=== PATIENT | male | born 1980 | race American Indian/Alaskan Native ===

== ENCOUNTER 2017-06-16 10:10 | Emergency (ER) | payer SELFPAY ==
[2017-06-16] MEDS ORDERED: ASPIRIN PO ONE (10:21)
--- NOTE | 2017-06-16 10:45 | XRay Report ---
ROUTINE CHEST, TWO VIEWS: HISTORY: chest pain, shortness of breath. The trachea, heart, mediastinal contour, lung duarte and bony thorax are unremarkable. IMPRESSION: Unremarkable chest x-ray. No significant change since 12/02/14.
[2017-06-16 10:50] LABS: Basophils % (Auto) 0.7 % (0.0-1.8); Eosinophils % (Auto) 1.7 % (0.0-4.3); Hemoglobin 14.8 gm/dl (11.8-15.2); Lymphocytes # (Auto) 0.8 K/mm3 (1.2-5.4); Lymphocytes % (Auto) 29.8 % (13.4-35.0); Mean Corpuscular HGB Conc 34 % (32-34); Mean Corpuscular Hemoglobin 29 pg (28-32); Mean Corpuscular Volume 85 fl (84-94); Monocytes # (Auto) 0.2 K/mm3 (0.0-0.8); Monocytes % (Auto) 9.2 % (0.0-7.3); Platelet Count 175 K/mm3 (140-440); Red Blood Count 5.07 M/mm3 (3.65-5.03); Red Cell Distribution Width 14.5 % (13.2-15.2)
[2017-06-16 10:53] LABS: BUN/Creatinine Ratio 11; Blood Urea Nitrogen 11 mg/dL (9-20); Calcium 8.7 mg/dL (8.4-10.2); Hemolysis Index 0
[2017-06-16] MEDS ORDERED: FLEXERIL PO ONE (17:46)
--- NOTE | 2017-06-16 17:48 | Emergency Department Report ---
HPI - General Chief Complaint: Chest Pain Time Seen by Provider: 06/16/17 16:38 - HPI HPI: 37-year-old -[place] male complaining of right chest pain. No shortness of breath. Pain is worse with movement. Pain is 5 out of 10 sharp. No nausea, no vomiting, no shortness of breath, no diaphoresis. ED Past Medical Hx - Past Medical History Previous Medical History?: Yes Hx HIV: Yes Additional medical history: AIDS - Surgical History Past Surgical History?: Yes Additional Surgical History: Abcess - Social History Smoking Status: Current Every Day Smoker Substance Use Type: None - Medications Home Medications: Home Medications Medication Instructions Recorded Confirmed Last Taken Type Albuterol Sulfate [Ventolin HFA] 2 puff IH Q4H PRN #1 hfa.aer.ad 12/02/14 Unknown Rx Atazanavir Sulfate [Reyataz] 400 mg PO QDAY 12/02/14 12/02/14 Unknown History Bactrim DS TAB 800 mg PO DAILY 12/02/14 12/02/14 Unknown History Emtricitabin/Tenofovir [TRUVADA 12/02/14 12/02/14 Unknown History 200-300 mg] Emtricitabin/Tenofovir [TRUVADA 12/02/14 12/02/14 Unknown History 200-300 mg] Promethazine [Phenergan TAB] 25 mg PO Q6HR PRN #30 tab 12/02/14 Unknown Rx Ritonavir [Norvir] 100 mg PO QDAY 12/02/14 12/02/14 Unknown History Sulfamethoxazole/Trimethoprim PO DAILY 12/02/14 12/02/14 Unknown History [Bactrim DS TAB] metroNIDAZOLE [Flagyl TAB] 500 mg PO Q8HR #21 tablet 12/02/14 Unknown Rx HYDROcodone/APAP 5-325 [[place] 1 each PO Q6HR PRN #20 tablet 06/16/17 Unknown Rx 5-325 mg TAB] ED Review of Systems ROS: Stated complaint: CHEST PAIN Other details as noted in HPI Comment: All other systems reviewed and negative ENT: denies: ear pain Respiratory: no symptoms reported Cardiovascular: chest pain Physical Exam - Physical Exam Vital Signs: Vital Signs 06/16/17 06/16/17 06/16/17 10:17 15:57 16:01 Temperature 98.6 F 98 F Pulse Rate 82 65 Respiratory 18 18 Rate Blood Pressure 125/85 130/70 O2 Sat by Pulse 98 95 Oximetry Physical Exam: Gen. alert and oriented 3 in no distress Head atraumatic normocephalic Eyes PERR LA EOMI Chest regular rate and rhythm normal S1-S2 lungs clear bilaterally Abdomen soft nondistended Back no point tenderness paravertebral tenderness Neuro no focal deficit. Psych normal mood. ED Course Vital Signs 06/16/17 06/16/17 06/16/17 10:17 15:57 16:01 Temperature 98.6 F 98 F Pulse Rate 82 65 Respiratory 18 18 Rate Blood Pressure 125/85 130/70 O2 Sat by Pulse 98 95 Oximetry ED Medical Decision Making - Lab Data Result diagrams: 06/16/17 10:27 06/16/17 10:27 Critical care attestation.: If time is entered above; I have spent that time in minutes in the direct care of this critically ill patient, excluding procedure time. ED Disposition Clinical Impression: Chest pain Disposition: DC-01 TO HOME OR SELFCARE Is pt being admited?: No Does the pt Need Aspirin: No Condition: Stable Instructions: Chest Pain (ED) Prescriptions: HYDROcodone/APAP 5-325 [[place] 5-325 mg TAB] 1 each PO Q6HR PRN #20 tablet PRN Reason: Pain Referrals: PRIMARY CARE, [Primary Care Provider] - 3-5 Days
[2017-06-16 18:11] VITALS: BP 128/67
== END 2017-06-16 18:12 | disposition home or self-care (01) ==
LOC: ED 10:10
DX: R07.89 Other chest pain (principal); F17.200 Nicotine dependence, unspecified, uncomplicated
CPT/HCPCS: 36415; 71046; 80048; 84484; 85025; 93005; 93010

== ENCOUNTER 2019-02-03 09:56 | Emergency (ER) | payer SELFPAY ==
[2019-02-03 10:05] VITALS: BP 134/76
[2019-02-03] MEDS ORDERED: NACL 0.9% 1000 ML 1,000 ML IV ONE (10:36)
[2019-02-03 11:29] LABS: Basophils % (Auto) 0.4 % (0.0-1.8); Eosinophils # (Auto) 0.1 K/mm3 (0.0-0.4); Eosinophils % (Auto) 2.8 % (0.0-4.3); Hematocrit 43.9 % (35.5-45.6); Hemoglobin 15.1 gm/dl (11.8-15.2); Lymphocytes # (Auto) 0.7 K/mm3 (1.2-5.4); Lymphocytes % (Auto) 24.3 % (13.4-35.0); Mean Corpuscular HGB Conc 34 % (32-34); Mean Corpuscular Volume 88 fl (84-94); Monocytes # (Auto) 0.3 K/mm3 (0.0-0.8); Monocytes % (Auto) 11.7 % (0.0-7.3); Platelet Count 193 K/mm3 (140-440); Red Cell Distribution Width 13.4 % (13.2-15.2)
[2019-02-03 11:34] LABS: Alanine Aminotransferase 16 units/L (7-56); Albumin 3.8 g/dL (3.9-5); BUN/Creatinine Ratio 7; Blood Urea Nitrogen 7 mg/dL (9-20); Calcium 8.9 mg/dL (8.4-10.2); Hemolysis Index 0
--- NOTE | 2019-02-03 11:39 | XRay Report ---
ABDOMEN 2 VIEWS INDICATION / CLINICAL INFORMATION: Abdominal pain. Diarrhea COMPARISON: None available. FINDINGS: TUBES / LINES: None. BOWEL GAS PATTERN: No significant abnormality. FREE AIR / EXTRALUMINAL GAS: None seen. ADDITIONAL FINDINGS: No significant additional findings. LUNGS: Lung bases appear clear. IMPRESSION: 1. No significant abnormality. Signer Name: Gato Davis MD Signed: 02/03/2019 11:35 AM Workstation Name: [email or web address]
[2019-02-03 11:44] LABS: Bacteria,Urine 1+ /HPF (Negative); Bilirubin,Urine NEG (Negative); Blood,Urine SM (Negative); Color,Urine Yellow (Yellow); Mucus,Urine FEW /HPF; Protein,Urine <15 mg/dL mg/dL (Negative); Urobilinogen,Urine < 2.0 mg/dL (<2.0)
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
== END 2019-02-03 13:28 | disposition home or self-care (01) ==
LOC: ED 09:56 → EEVIPCON 09:56 → ED 13:28
DX: T74.21XA Adult sexual abuse, confirmed, initial encounter (principal); R19.7 Diarrhea, unspecified; Z21 Asymptomatic human immunodeficiency virus [HIV] infection status; F17.200 Nicotine dependence, unspecified, uncomplicated; F12.10 Cannabis abuse, uncomplicated; Z79.899 Other long term (current) drug therapy; Y07.9 Unspecified perpetrator of maltreatment and neglect
CPT/HCPCS: 36415; 74019; 80053; 81001; 85025; 96360; 99284; J7030